=== PATIENT | female | born 1940 ===

== ENCOUNTER 2025-03-22 11:41 | Outpatient (AMB) | payer MEDICARE, SELFPAY ==
--- NOTE | 2025-03-22 11:42 | A.PHYSOV_ITS ---
Vital Signs 03/22/25 11:47 Height 5 ft 3 in Weight 202 lb BMI 35.8 Intake Visit Reasons: Follow up after injection 01/26/25 Intake Note: Patient is a 85 year old female in office today for a follow up after Left L2 Transforaminal Epidural Injection 01/26/25. [employer]per Required: No Allergies No Known Allergies Allergy (Verified 03/22/25 11:49) HPI Comments Details: History of Present Illness The patient is an 85 year old female presenting for follow-up of chronic pain. Her most recent injection provided fair relief for two weeks, after which the pain returned, and she has been relying on Tylenol for the past six weeks. She reports severe sleep disruption, sleeping for at most one hour at a time before being awake for two hours. The pain is located in her left hip, which she notes has a locking sensation, as well as her spine and groin. The pain is not constant and occurs in spurts. She finds some relief by alternating ice packs and a heating pad. Past interventions include multiple injections which have not been successful; a back injection on November 17 and a hip injection provided no relief. An injection that previously worked for right-sided pain was repeated for her current left-sided pain but did not help. The patient has a known history of severe, multi-level compression of the spinal cord. Her medical history is notable for peripheral neuropathy, for which she takes gabapentin with little effect, and she also reports swollen feet. She is status post right hip surgery and continues to experience pain in that hip. She has a history of cancer and has been in remission for five years. Patient did see good relief of her pain with Percocet. Patient has not responded to interlaminar injection, transforaminal injection of her spine as well as left hip intra-articular injection. She is frustrated at her lack of improvement. She has a pain level today of 7/10. Pain Description - Location: Pain is primarily in the left hip and spine, with associated groin pain. - She also reports continued pain in her post-surgical right hip, pain in her hands, and pain in her cheekbone when sitting. - Quality: The pain is described as intermittent, occurring in spurts, and she experiences a locking sensation in her hip. - Severity: The pain is described as terrible and has been severe enough that she has been living on Tylenol for the past six weeks. - Timing/Exacerbating Factors: Pain is worse at night and when sitting for periods longer than an hour. - Relieving Factors: Alternating ice packs and a heating pad provides a little bit of relief. - Associated Symptoms/Interference with Function: The pain severely interferes with her sleep, limiting her to one hour at a time. Procedure: L4-5 MADELAINE 01/28/2024 80% reduction of her pain L4-5 MADELAINE 06/09/2024 50% reduction of her pain L4-5 MADELAINE 11/17/2024 no relief Left hip intra-articular injection 11/17/2024 no relief Left L2 TFESI January 26 2025 no relief PFSH Surgical History (Updated 03/20/25 @ 13:43 by Maddie Hector MA) History of cataract surgery (Unknown) H/O: hysterectomy (Unknown) History of hip replacement (Unknown) History of cholecystectomy (Unknown) History of cancer surgery (Unknown) History of back surgery (Unknown) Social History (Updated 03/20/25 @ 13:44 by Maddie Hector MA) Household Members Other:: Alcohol intake: current Alcohol intake frequency: does not drink Current occupational status: retired Review of Systems Narrative Review of Systems - Constitutional: Reports severe fatigue and significant sleep disturbance, sleeping in one-hour increments at night and taking naps during the day. - Musculoskeletal: Reports pain in the left hip with a locking sensation and pain in the spine. - Also reports pain in her hands and persistent pain in her post-surgical right hip. - Neurological: Reports neuropathy in her feet. - Extremities: Reports bilateral foot swelling. - HEENT: Reports pain in her cheekbone when sitting for a prolonged period. Physical Exam Exam Exam: Physical Exam Lumbar Spine: Examination of her lumbar spine, there is no visible swelling or deformity. She is tender to lower lumbar facets. She is otherwise nontender. Full range of motion of her lumbar spine. She denies any increase in pain with facet loading. Special Tests: Lhermittes sign was negative Heel Toe walk is normal Left straight leg raise: Negative Right straight leg raise: Negative Special tests Jose Alberto test is negative Ganslen's test is negative SI Joint compression test negative Katiuska test negative Piriformis stretch is negative Lower Extremities: Pain is reproducible with left hip range of motion particularly in abduction and external rotation which is limited. Neuro: Sensation: Intact to lower extremities bilaterally Strength L2 (Psoas): 5/5 on the left and 5/5 on the right. L3 (Quads): 5/5 on the left and 5/5 on the right. L4 (Ant tibialis): 5/5 on the left and 5/5 on the right. L5 (EHL) 5/5 on the left and 5/5 on the right. S1 (Gastroc): 5/5 on the left and 5/5 on the right. DTR L4: (Patellar) Left 1 Right 1 S1: (Achilles) Left 1 Right 1 Babinski Downgoing No pathologic clonus. No involuntary movement. Vital Signs: BMI result Body Mass Index 35.8 Assessment & Plan Assessment & Plan (1) Lumbar radiculopathy: Code(s): M54.16 - Radiculopathy, lumbar region Category: Medical (2) Lumbar spondylosis: Code(s): M47.816 - Spondylosis without myelopathy or radiculopathy, lumbar region Category: Medical (3) Osteoarthritis of left hip: Code(s): M16.12 - Unilateral primary osteoarthritis, left hip Category: Medical Qualifiers: Osteoarthritis type: primary Qualified Code(s): M16.12 - Unilateral primary osteoarthritis, left hip Plan Pain Management - Affect: The patient feels exhausted from her pain and disturbed sleep, and reports she is ready to call it quits. - Analgesia: The patient is currently using Tylenol for pain. - She also takes gabapentin for neuropathy but does not find it helpful for her pain. - Recent injections have failed to provide relief. - Adverse Effects: The patient reports a history of a very bad upset stomach with Percocet, though a more recent trial was well-tolerated. - Activities of Daily Living: Her pain severely disrupts her sleep, allowing only up to one hour of sleep at a time. - Pain worsens after sitting for an hour. - Aberrant Drug Related Behaviors: The patient expresses a strong reluctance to take pain medications. - No signs of medication misuse are noted. Plan Patient was informed and verbally consented to the use of an ambient scribe for clinic note documentation during this visit. 1. 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 She declined a referral to a spine surgeon due to an aversion to surgery. The plan is to manage her pain with oral medications. A prescription for Percocet will be sent, to be used on an as-needed basis for severe pain. She was instructed to avoid taking Tylenol concurrently, as hydrocodone contains acetaminophen. She was advised that taking it with her gabapentin may cause additive sedation. The patient is to call in two weeks if the medication is not effective and to follow up in the office in one month to assess efficacy and tolerance. 2. Insomnia The patient's insomnia is secondary to uncontrolled chronic pain. The planned initiation of Percocet is intended to improve pain control and consequently improve her ability to rest. It was suggested she could take the medication at the end of the day to help with sleep. 3. Adverse Effect Of Therapeutic Drug, Initial Encounter The patient has a conflicting history regarding Percocet, reporting both a past adverse reaction of nausea and vomiting post-surgery, and a successful, well- tolerated trial more recently. It is possible the initial reaction was related to anesthesia rather than the medication itself. Due to this ambiguity, the plan is to trial Percocet, a different opioid, and monitor for tolerance. Discussion Notes I discussed with the patient that her severe multi-level spinal cord compression has likely progressed to a point where injections are no longer effective. I offered the options of a surgical consultation or management with oral pain medication. The patient declined the surgical referral, so we agreed to proceed with a trial of an oral pain medication. I explained that I will prescribe Percocet which she should use sparingly and only as needed for severe pain. I counseled her not to take additional Tylenol with this medication and advised on the potential for additive sedation when taken with her gabapentin. I reassured her that her fragmented sleep schedule is understandable given her age and pain levels, and encouraged her to rest whenever possible. For follow- up, I advised her to make an appointment in one month to review the medication's effectiveness and to call the office in two weeks if she finds it is not helpi ng, so we can adjust the plan sooner. Medications: New oxycodone-acetaminophen 5-325 mg (Percocet) Partial Fill upon patient request. 1 tab PO QID PRN 28 tabs 0RF pain 7 days M16.12 - Unilateral primary osteoarthritis, left hip, M47.816 - Spondylosis without myelopathy or radiculopathy, lumbar region, M54.16 - Radiculopathy, lumbar region Coding Level of Care Code Tele Est Pt Level 3 (80051) Diagnoses Lumbar radiculopathy M54.16 Lumbar spondylosis M47.816 Primary osteoarthritis of left hip M16.12 Osteoarthritis type: primary
[2025-03-22 11:47] VITALS: BMI 35.8
== END 2025-03-22 12:27 | disposition home or self-care (01) ==
LOC: HO.HPHYS 11:41
PROVIDERS: PCP Internal Medicine; Visit Provider Physician Assistant
DX: M54.16 Radiculopathy, lumbar region (principal); M47.816 Spondylosis without myelopathy or radiculopathy, lumbar region; M16.12 Unilateral primary osteoarthritis, left hip
CPT/HCPCS: 99213

== ENCOUNTER → 2025-03-22 11:41 | Outpatient (BNVA) | payer MEDICARE, SELFPAY | PROVIDERS: PCP Internal Medicine; Visit Provider Physician Assistant | DX: M54.16 Radiculopathy, lumbar region (principal); M47.816 Spondylosis without myelopathy or radiculopathy, lumbar region; M16.12 Unilateral primary osteoarthritis, left hip; T50.905A Adverse effect of unspecified drugs, medicaments and biological substances, initial encounter; G89.29 Other chronic pain; G47.00 Insomnia, unspecified | CPT/HCPCS: 99212 ==